=== PATIENT | male | born 1965 | race Caucasian/White ===

== ENCOUNTER 2020-12-21 14:26 | Outpatient (CLI) | payer BC, SELFPAY ==
--- NOTE | 2020-12-21 14:15 | DI.RAD_ITS ---
Exam(s) XR KNEE RT 1V EXAM: XR KNEE RT 1V CLINICAL HISTORY: right knee pain. TECHNIQUE: 2D digital imaging was performed. COMPARISON: No exams were available for comparison FINDINGS: Single lateral view of the right knee performed weight-bearing reveals advanced osteoarthritic degene rative changes. No obvious joint effusion. No osseous lesions. Bone density is normal. IMPRESSION: DATA REPOSITORY: RADIATION DOSE DELIVERED:
--- NOTE | 2020-12-21 14:15 | DI.RAD_ITS ---
Exam(s) XR STANDING ALIGNMENT EXAM: XR STANDING ALIGNMENT CLINICAL HISTORY: right knee pain. TECHNIQUE: 2D digital imaging was performed. COMPARISON: No exams were available for comparison FINDINGS: There are moderate-advanced degenerative changes medial lateral compartments of the right knee withou t significant similar changes in the opposite-left. Both hips appear relatively unremarkable minimal findings in the ankles. No osseous lesions. IMPRESSION: Significant degenerative changes in the right knee joint. DATA REPOSITORY: RADIATION DOSE DELIVERED:
--- NOTE | 2020-12-21 14:32 | DI.RAD_ITS ---
Exam(s) XR SHOULDER RT COMPLETE 2+V EXAM: XR SHOULDER RT COMPLETE 2+V CLINICAL HISTORY: right shoulder pain. TECHNIQUE: 2D digital imaging was performed. COMPARISON: No exams were available for comparison FINDINGS: No evidence of fracture nor dislocation nor soft tissue calcifications in the subacromial space. Mil d degenerative changes are noted in the glenohumeral joint. In addition, there is 6 millimeter ossif ication off the inferior osseous glenoid. This either loose body or possibly a related to prior bony [place] injury. Lateral to this is a fainter similar size calcification noted. Both these calcific ations are lined along the inferior glenohumeral ligament region. IMPRESSION: Inferior recess loose intra-articular bodies as described above Mild degenerative changes in the glenohumeral joint. Mild degenerative changes in the AC joint. DATA REPOSITORY: RADIATION DOSE DELIVERED:
== END 2020-12-21 14:27 | disposition home or self-care (01) ==
LOC: DIORS 14:27
PROVIDERS: PCP Family Medicine; Visit Provider Physician Assistant
DX: M19.011 Primary osteoarthritis, right shoulder (principal); M24.011 Loose body in right shoulder; M17.11 Unilateral primary osteoarthritis, right knee
CPT/HCPCS: 73030; 73560; 77073

== ENCOUNTER 2021-01-22 03:16 | Outpatient (CLI) | payer BC, SELFPAY ==
--- NOTE | 2021-01-22 08:15 | DI.MRI_ITS ---
Exam(s) MR UPPER JOINT RT WO CLINICAL HISTORY: PAIN, rt rotator cuff tear, M75.101,. TECHNIQUE: Multiplanar multisequence MRI was performed. COMPARISON: None FINDINGS: MR examination of the shoulder was performed according to the usual protocol. There is a moderate shoulder joint effusion. There is trace fluid in the subacromial bursa. Bones and labrum: There are severe degenerative changes of the glenohumeral joint with mild superior subluxation of humeral head, marked articular cartilage thinning, multiple cysts subchondral cysts of the humeral head and glenoid, and marked effacement of the glenoid labrum with presumed labral teari ng from anterior to posteriorly superiorly. There is marked hypertrophic change at the acromioclavicular joint with a joint effusion and moderate signal abnormalities of the acromion and clavicle. Rotator cuff: Supraspinatus shows abnormal signal from the myotendinous junction distally. There is moderate impingement on myotendinous junction from AC joint hypertrophic changes. There is minor te aring, 2-3 millimeters in size, at the inferior surface of the supraspinatus at the footprint. No fu ll-thickness tear or retraction seen. There is mildly abnormal signal in subscapularis tendon superiorly. No definite tear seen. Infraspi natus and teres minor muscles and tendons show normal signal and no evidence of tearing. Rotator interval structures are unremarkable with no evidence of a tear. Biceps tendon and anchor: Biceps tendon and anchor show normal signal and no evidence of a tear. Aida ps tendon is normally positioned in the bicipital groove. There is small effusion in the biceps tend on sheath. IMPRESSION: Severe degenerative changes of the glenohumeral joint and AC joint. Effaced presumably torn glenoid labrum. Mild supraspinatus tendinosis and minor partial thickness tearing at the humeral footprint of the sup raspinatus. DATA REPOSITORY:
== END 2021-01-22 03:36 ==
PROVIDERS: PCP Family Medicine; Visit Provider Student in an Organized Health Care Education/Training Program
DX: M75.101 Unspecified rotator cuff tear or rupture of right shoulder, not specified as traumatic (principal); R52 Pain, unspecified; M19.011 Primary osteoarthritis, right shoulder
CPT/HCPCS: 73221

== ENCOUNTER 2021-02-15 01:46 | Outpatient (CLI) | payer BC, SELFPAY ==
[2021-02-15 09:05] LABS: HCT 42.4 % (40.0-50.0); HGB 14.4 g/dL (13.5-17.5); MCH 30.5 pg (27.0-33.0); MCV 89.8 fL (80-95); MPV 9.2 fL (8.0-11.0); Platelet Count 307 10^3/uL (130-400); RBC 4.72 10^6/uL (4.36-5.78); RDW 11.9 % (11.8-14.1)
[2021-02-15 10:50] LABS: Anion Gap 9.6 mmol/L (3-11); BUN 30 mg/dL (7-18); CO2 27.4 mmol/L (21.0-32.0); CREATININE 1.3 mg/dL (0.70-1.30); Calcium 9.4 mg/dL (8.5-10.1); Chloride 106 mmol/L (98-107); Glucose 115 mg/dL (74-106); Potassium 4.9 mmol/L (3.5-5.1); Sodium 143 mmol/L (136-145)
== END 2021-02-15 01:47 | disposition home or self-care (01) ==
LOC: LBO 01:46
PROVIDERS: PCP Family Medicine; Visit Provider Student in an Organized Health Care Education/Training Program
DX: M25.561 Pain in right knee (principal); M17.11 Unilateral primary osteoarthritis, right knee; Z01.818 Encounter for other preprocedural examination; Z01.812 Encounter for preprocedural laboratory examination
CPT/HCPCS: 36415; 80048; 85027

== ENCOUNTER 2021-02-15 02:32 | Outpatient (CLI) | payer BC, SELFPAY ==
[2021-02-15 11:06] LABS: Source Nasal/Nares
[2021-02-15 14:17] LABS: COVID-19 PCR Negative (Negative)
== END 2021-02-15 02:33 | disposition home or self-care (01) ==
LOC: LBO 02:32
PROVIDERS: PCP Family Medicine; Visit Provider Student in an Organized Health Care Education/Training Program
DX: Z20.822 Contact with and (suspected) exposure to COVID-19 (principal); Z01.818 Encounter for other preprocedural examination
CPT/HCPCS: 87635

== ENCOUNTER 2021-02-16 08:58 | Day surgery (SDC) | payer BC, SELFPAY ==
[2021-02-16] VITALS (7 sets, daily range): BP systolic 109–152; BP diastolic 62–93; PULSE 60–77; RESP 16–30; TEMP 36.2–36.6; O2SAT 94–99; BMI 28.2
--- NOTE | 2021-02-16 07:33 | DSE_ITS ---
DS: Diagnosis Discharge Diagnosis (1) Degenerative joint disease of right knee: Status: Acute (2) Arthritis of right glenohumeral joint: Status: Acute Discharge Plan Disposition Patient Disposition: HOME Condition: Good Discharge Details Reason For Visit: Right knee DJD; right glenohumeral arthritis Attending Provider: Anish Davila Primary Care Provider: Jamar Frias Home Meds and New Rx's Prescriptions: New acetaminophen 500 mg tablet 500 mg PO Q6H PRN (Reason: pain) Qty: 60 RF: 2 aspirin 81 mg tablet,delayed release (DR/EC) 81 mg PO BID 30 Days Qty: 60 RF: 0 celecoxib [Celebrex] 200 mg capsule 200 mg PO BID Qty: 30 RF: 0 docusate sodium [Colace] 100 mg capsule 100 mg PO BID Qty: 30 RF: 0 gabapentin 300 mg capsule 300 mg PO QHS Qty: 14 RF: 0 oxycodone 5 mg tablet 5 mg PO Q4H PRN (Reason: severe post-operative pain) Qty: 18 RF: 0 Continued THC gummies PO RF: 0 lisinopril-hydrochlorothiazide 20-12.5 mg Tablet 1 tab PO DAILY RF: 0 pantoprazole 20 mg Tablet,Delayed Release (Dr/Ec) 20 mg PO DAILY RF: 0 ropinirole 4 mg Tablet 4 mg PO DAILY RF: 0 rosuvastatin 40 mg Tablet 40 mg PO DAILY RF: 0 Centrum Silver Men 300-600-300 mcg Tablet 1 tab PO DAILY RF: 0 Discontinued acetaminophen 500 mg capsule 1,000 mg PO Q6H PRNRF: 0 ibuprofen [Motrin IB] 200 mg tablet 800 mg PO Q6H PRNRF: 0 Discharge Instructions Additional Instructions: Total Knee Discharge Instructions Activity: The most important activity is to walk. You should try to take short walks a few times a day. It is important that when resting you work on keeping the knee straight. Avoid putting a pillow behind the knee as this will encourage flexion. Work on range of motion exercises as provided by Physical Therapy. If you have the [employer] bike coming, this will be your primary tool for exercise after the knee replacement. You should use it and follow the directions for the knee. Utilize the other exercises sparingly based on your symptoms. - Start outpatient physical therapy within 2 weeks. - You should wear the NADIRA hose on both legs for 2 weeks. You may remove these at night. You may also use any compression sock in place of the NADIRA hose. - Utilize [employer] to review exercises, see videos on exercises and obtain basic information pertaining to your surgery and your recovery. - Regarding your right shoulder injection - you can have increased discomfort or pressure in the shoulder for a few days. Hopefully you start to have relief from the injection but it can take up to two weeks to have full effect. Dressing: Remove the Louie wrap by 2 days after your surgery and put on the NADIRA stocking given to you from the hospital. Keep the surgical dressing (underneath the LOUIE wrap) in place for at least one week. After the first week it may be removed and replaced with light gauze and tape or nothing. The wound and dressing may get wet after 3 days but avoid soaking the dressing or otherwise it will need to be changed. Many people prefer covering the dressing with cling wrap (saran wrap) to minimize it from getting soaked. If it gets wet, just pat dry. If it starts to peel off then it will need to be changed. Medications: - You should take Tylenol and anti-inflammatory Celebrex as your primary pain control medications. If the Celebrex is too expensive or not covered, please call the office for another alternative (Advil/Ibuprofen or Naproxen/Aleve) - You have been prescribed a stronger pain medication Oxycodone for breakthrough pain, take as needed as prescribed. - You have also been prescribed a stomach acid reduction agent Pantoprozole to help reduce stomach acid and reflux. - You have been prescribed Gabapentin to take at night for restlessness and nerve pain. - You will be taking Aspirin 81mg twice a day for DVT prevention unless instructed otherwise. - If you have constipation you should take Colace or Miralax (both [id number]). It takes most people 3-4 days to have a bowel movement. Follow-up: 2 weeks If you have any acute concerns or questions, please do not hesitate to contact the office at [phone]. You may contact Dr. Davila with any questions after hours through the hospital at [phone] or on his cell phone at [phone]. Equipment/Supplies: Walker Activity:: Elevate Remove Dressings/Wound Care:: Do Not Remove Shower/Bathe:: 72 hours Diet:: As Tolerated DS: Data Vitals/I&O Vitals and I&O: Intake & Output 02/15/21 02/15/21 02/16/21 11:59 23:59 11:59 Weight 99.79 kg PFSH Medical History Acid reflux Arthritis of right glenohumeral joint Degenerative joint disease of right knee HTN (hypertension) Hyperlipemia Right rotator cuff tear RLS (restless legs syndrome) Surgical History History of arthroscopy of left knee History of arthroscopy of right knee History of hand surgery Status post labral repair of shoulder Right ~10-15 years ago [facility] Social History Smoking/Tobacco Use Status: Never Second Hand Exposure: No Smoking risk assessment performed?: Yes Alcohol Intake: current Alcohol Intake frequency: holidays/special occasions only Drug use: Occasionally Substance use type: marijuana Do you feel safe at home: Yes Do you feel safe in your relationship?: Yes
--- NOTE | 2021-02-16 08:28 | ANES.PREOP_ITS ---
General Info Date of Service Date Performed: 02/16/21 Height: 6 ft 2 in Weight: 99.79 kg Body Mass Index (BMI): 28.2 Surgical Procedure: Operation Date: 02/16/21 11:10 Proposed Procedures Side Surgeon p Knee Total Arthroplasty (R) Right Anish Davila MD s RIGHT SHOULDER INJECTION WITH C ARM Right Anish Davila MD Meds Allergies and Home Medications Allergies Allergy/AdvReac Type Severity Reaction Status Date / Time No Known Allergies Allergy Verified 02/16/21 09:20 Home Medication Medication Instructions Recorded THC gummies PO 12/21/20 Centrum Silver Men 1 tab PO DAILY 02/15/21 lisinopril-hydrochlorothiazide 1 tab PO DAILY 02/15/21 pantoprazole 20 mg PO DAILY 02/15/21 ropinirole 4 mg PO DAILY 02/15/21 rosuvastatin 40 mg PO DAILY 02/15/21 acetaminophen 500 mg PO Q6H PRN #60 tab 02/16/21 aspirin 81 mg PO BID 30 Days #60 tab 02/16/21 celecoxib [Celebrex] 200 mg PO BID #30 cap 02/16/21 docusate sodium [Colace] 100 mg PO BID #30 cap 02/16/21 gabapentin 300 mg PO QHS #14 cap 02/16/21 oxycodone 5 mg PO Q4H PRN #18 tab 02/16/21 Current Visit Medications: Current Medications Generic Name Dose Route Start Last Admin Trade Name Freq PRN Reason Stop Dose Admin Acetaminophen 1,000 mg 02/16/21 06:00 Acetaminophen 500 Mg Tab PO 02/16/21 18:00 PREOP MARYELLEN Acetaminophen 1,000 mg 02/16/21 09:00 Acetaminophen 500 Mg Tab PO TID MARYELLEN Aspirin 81 mg 02/16/21 09:00 Aspirin E.C. 81 Mg Tabec PO BID MARYELLEN Celecoxib 400 mg 02/16/21 06:00 Celecoxib 200 Mg Cap PO 02/16/21 18:00 PREOP MARYELLEN Celecoxib 200 mg 02/16/21 09:00 Celecoxib 200 Mg Cap PO BID MARYELLEN Docusate Sodium 100 mg 02/16/21 07:31 Docusate Sodium 100 Mg Cap PO BID PRN PRN Constipation Gabapentin 300 mg 02/16/21 06:00 Gabapentin 300 Mg Cap PO 02/16/21 18:00 PREOP MARYELLEN Gabapentin 300 mg 02/16/21 22:00 Gabapentin 300 Mg Cap PO HS MARYELLEN Hydromorphone HCl 0.5 mg 02/16/21 07:31 Hydromorphone 2 Mg/Ml Vial IVP Q2H PRN PRN Hydromorphone HCl 0 mg 02/16/21 08:26 Hydromorphone 2 Mg/Ml Vial IVP DIRECTED PRN Ringer's Solution 1,000 mls @ 80 mls/hr 02/16/21 06:00 IV 03/17/21 23:59 INFUSION MARYELLEN Cefazolin Sodium 2,000 mg/ 100 mls @ 200 mls/hr 02/16/21 06:00 Sodium Chloride IVPB 02/16/21 16:00 PREOP MARYELLEN Tranexamic Acid 1,000 mg/ 60 mls @ 360 mls/hr 02/16/21 06:00 Sodium Chloride IVPB 02/16/21 18:00 PREOP MARYELLEN Tranexamic Acid 1,000 mg/ 60 mls @ 360 mls/hr 02/16/21 06:00 Sodium Chloride IVPB 02/16/21 18:00 DIRECTED MARYELLEN Cefazolin Sodium/Dextrose 1 gm in 50 mls @ 100 mls/hr 02/16/21 10:00 Ancef Duplex IVPB 02/17/21 02:29 Q8H MARYELLEN IV Miscellaneous Supplies 1 each 02/16/21 06:00 Iv Access IV 03/17/21 23:59 DIRECTED MARYELLEN Naloxone HCl 0 mg 02/16/21 08:26 Naloxone 0.4 Mg/Ml Vial IVP PRN PRN Oxycodone HCl 0 mg 02/16/21 07:31 Oxycodone 5 Mg Tab PO Q3H PRN PRN Pain Pantoprazole Sodium 40 mg 02/17/21 08:00 Pantoprazole 40 Mg Tabcr PO DAILY@0730 MARYELLEN Polyethylene Glycol 17 gm 02/16/21 07:31 Polyethylene Glycol 3350 17 Gm Packet PO BID PRN PRN Constipation Sodium Chloride 0 ml 02/16/21 06:00 Normal Saline Flush 10 Ml Syr IV 03/17/21 23:59 PRN PRN Sodium Chloride 0 ml 02/16/21 06:00 Normal Saline 10 Ml Vial IJ 03/17/21 23:59 DIRECTED PRN Sterile Water 0 ml 02/16/21 06:00 Water,Injection,Sterile 10 Ml Vial IJ 03/17/21 23:59 DIRECTED PRN PFSH Active Problems Active Problems: Problem Status Onset Code Right rotator cuff tear M75.101 Arthritis of right glenohumeral joint M19.011 Degenerative joint disease of right knee M17.11 Medical History Medical History Acid reflux Arthritis of right glenohumeral joint Degenerative joint disease of right knee HTN (hypertension) Hyperlipemia Right rotator cuff tear RLS (restless legs syndrome) Surgical History Surgical History History of arthroscopy of left knee History of arthroscopy of right knee History of hand surgery Status post labral repair of shoulder Right ~10-15 years ago [facility] Tobacco Smoking/Tobacco Use Status: Never Second hand exposure: No Alcohol Alcohol Intake: current Alcohol intake frequency: holidays/special occasions only Substance Use Substance use: Occasionally Substance use type: marijuana Vital Signs and Lab Results Vital Signs Most Recent Vital Signs in EMR: Temp Pulse Resp BP Pulse Ox 36.6 C 77 16 152/93 H 98 02/16/21 09:03 02/16/21 09:03 02/16/21 09:03 02/16/21 09:03 02/16/21 09:03 Lab Results Blood Type / Crossmatch: No Data to Display Complete Blood Count: White Blood Count 4.60 10^3/uL (4.4-10.8) 02/15/21 08:55 02/15/21 Red Blood Count 4.72 10^6/uL (4.36-5.78) 02/15/21 08:55 02/15/21 Hemoglobin 14.4 g/dL (13.5-17.5) 02/15/21 08:55 02/15/21 Hematocrit 42.4 % (40.0-50.0) 02/15/21 08:55 02/15/21 Platelet Count 307 10^3/uL (130-400) 02/15/21 08:55 02/15/21 Complete Metabolic Panel: Sodium Level 143 mmol/L (136-145) 02/15/21 08:55 02/15/21 Potassium Level 4.9 mmol/L (3.5-5.1) 02/15/21 08:55 02/15/21 Chloride Level 106 mmol/L (98-107) 02/15/21 08:55 02/15/21 Carbon Dioxide Level 27.4 mmol/L (21.0-32.0) 02/15/21 08:55 02/15/21 Blood Urea Nitrogen 30 mg/dL (7-18) H 02/15/21 08:55 02/15/21 Creatinine 1.3 mg/dL (0.70-1.30) 02/15/21 08:55 02/15/21 Estimated GFR/1.73 m2 56.90 (mL/min/1.73m2) 02/15/21 08:55 02/15/21 Calcium Level 9.4 mg/dL (8.5-10.1) 02/15/21 08:55 02/15/21 Glucose Level 115 mg/dL (74-106) H 02/15/21 08:55 02/15/21 Liver Function Panel: No Data to Display Coagulation Panel: No Data to Display Cardiac Panel: No Data to Display Arterial Blood Gas: No Data to Display Venous Blood Gas: No Data to Display Pancreas Panel: No Data to Display Thyroid Panel: No Data to Display Infectious Disease: Coronavirus (COVID-19)(PCR) Negative (Negative) 02/15/21 08:17 02/15/21 Coronavirus 2019 Source Nasal/Nares 02/15/21 08:17 02/15/21 Blood Cultures: No Data to Display Toxicology Panel: No Data to Display Anesthesia Assessment and Plan Anesthesia History Personal History: No History of Anesthesia Complications Family History: No Family History of Anesthesia Complications Exercise Tolerance Exercise Tolerance: Metabolic Equivalents>4 Cardiac & Pulmonary Exam Cardiac Exam: Normal S1/S2 Heart Sounds Pulmonary Exam: Clear Bilateral Breath Sounds Airway Exam Known Difficult Airway: No Mallampati Class: 2 Mouth Opening: Normal (> 3cm) Thyromental Distance: Greater than 3 cm Neck Range of Motion: Limited ROM Neck Circumference: Normal Teeth Condition: Normal Dentition ASA Classification ASA Score: ASA 2 Emergency Case?: No NPO Status NPO Status: NPO Clears >2 hours, Solids >8 hours Anesthesia Plan Resuscitation Status: Full Code Anesthesia Technique: Spinal Anesthesia Airway Planned: Natural Airway Pain Management: Surgeon and patient request nerve block Monitors Used: Standard Monitors Preoperative Comments:: 55 yo male for TKA. PMHx: HTN (lisinopril-HCTZ). Denies major cardiac, pulmonary, renal, liver, issues. plan: spinal with ACB
[2021-02-16] MEDS: Celecoxib 200 MG CAP 400 MG PO (09:18)
[2021-02-16] MEDS: Gabapentin 300 MG CAP PO (09:19)
[2021-02-16] MEDS: Acetaminophen 500 MG TAB 1000 MG PO ×2 (09:19→13:57)
[2021-02-16] MEDS: Lactated Ringers 1,000 ML 80 ML IV (09:39)
--- NOTE | 2021-02-16 10:30 | DI.RAD_ITS ---
Exam(s) XR SHOULDER RT 1V EXAM: XR SHOULDER RT 1V CLINICAL HISTORY: RIGHT SHOULDER INJECTION TECHNIQUE: 2D and realtime digital imaging was performed. CONTRAST MATERIAL: Refer to procedure report. COMPARISON: No exams were available for comparison FINDINGS: Fluoroscopy was provided for Dr. Davila during the performance of a right shoulder injection. Ple ase refer to the procedure report for complete details. Ka,r=0.76 mGy IMPRESSION: RADIATION DOSE DELIVERED:
--- NOTE | 2021-02-16 10:44 | W.ANESNERVE ---
Nerve Block Single Injection Procedure Date and Time Date Performed: 02/16/21 Procedure Start: 10:45 Location Where Procedure Performed Procedure Location: Day Surgery Unit Reason Performed: Postoperative Analgesia Requesting Provider: Anish Davila Timeout Performed Timeout Performed: Yes Monitoring Used ECG, Blood Pressure and SpO2 Sterility Sterility: Hand Hygiene, Surgical Cap, Surgical Mask and Sterile Gloves Sedation Given During Procedure Sedation Given (Indicate Dose Given): No Sedation given Patient Mental Status Patient Mental Status: Awake Nerve Block 1st Nerve Block: Laterality: Right Block Type: Adductor Canal Needle / Catheter Used: 100mm SonoPlex II Local Anesthetic Bolus (Indicate Dose Given): Lidocaine used for local infiltration of skin, Injected in 3-5ml increments after negative blood aspiration and Bupivacaine 0.375% Dose:: 10 mL Additives (Indicate Dose Given): None Ultrasound: Sterile probe cover and gel used Ultrasound Image Saved?: Yes Nerve Stimulator: Not Used Paresthesia: None Procedure Tolerated: No Complications Procedure Outcome: Successful Performed By: Bartolome Carlos
[2021-02-16] MEDS: Bupivacaine 0.25% Pres-Free 30 ML VIAL ×2 (11:10→11:37)
[2021-02-16] MEDS: methylPREDNISolone ACETATE 80 MG/ML VIAL (11:10)
[2021-02-16] MEDS: Normal Saline 20 ML VIAL (11:37)
[2021-02-16] MEDS: Ketorolac 30 MG/ML VIAL (11:37)
--- NOTE | 2021-02-16 13:28 | W.PM.DSUDISC ---
Discharge Plan Disposition Patient Disposition: HOME Condition: Good Discharge Details Reason For Visit: Right knee DJD; right glenohumeral arthritis Attending Provider: Anish Davila Primary Care Provider: Jamar Frias Home Meds and New Rx's Prescriptions: New acetaminophen 500 mg tablet 500 mg PO Q6H PRN (Reason: pain) Qty: 60 RF: 2 aspirin 81 mg tablet,delayed release (DR/EC) 81 mg PO BID 30 Days Qty: 60 RF: 0 celecoxib [Celebrex] 200 mg capsule 200 mg PO BID Qty: 30 RF: 0 docusate sodium [Colace] 100 mg capsule 100 mg PO BID Qty: 30 RF: 0 gabapentin 300 mg capsule 300 mg PO QHS Qty: 14 RF: 0 oxycodone 5 mg tablet 5 mg PO Q4H PRN (Reason: severe post-operative pain) Qty: 18 RF: 0 Continued THC gummies PO RF: 0 lisinopril-hydrochlorothiazide 20-12.5 mg Tablet 1 tab PO DAILY RF: 0 pantoprazole 20 mg Tablet,Delayed Release (Dr/Ec) 20 mg PO DAILY RF: 0 ropinirole 4 mg Tablet 4 mg PO DAILY RF: 0 rosuvastatin 40 mg Tablet 40 mg PO DAILY RF: 0 Centrum Silver Men 300-600-300 mcg Tablet 1 tab PO DAILY RF: 0 Discontinued acetaminophen 500 mg capsule 1,000 mg PO Q6H PRNRF: 0 ibuprofen [Motrin IB] 200 mg tablet 800 mg PO Q6H PRNRF: 0 Discharge Instructions Additional Instructions: Total Knee Discharge Instructions Activity: The most important activity is to walk. You should try to take short walks a few times a day. It is important that when resting you work on keeping the knee straight. Avoid putting a pillow behind the knee as this will encourage flexion. Work on range of motion exercises as provided by Physical Therapy. If you have the [employer] bike coming, this will be your primary tool for exercise after the knee replacement. You should use it and follow the directions for the knee. Utilize the other exercises sparingly based on your symptoms. - Start outpatient physical therapy within 2 weeks. - You should wear the NADIRA hose on both legs for 2 weeks. You may remove these at night. You may also use any compression sock in place of the NADIRA hose. - Utilize [employer] to review exercises, see videos on exercises and obtain basic information pertaining to your surgery and your recovery. - Regarding your right shoulder injection - you can have increased discomfort or pressure in the shoulder for a few days. Hopefully you start to have relief from the injection but it can take up to two weeks to have full effect. Dressing: Remove the Louie wrap by 2 days after your surgery and put on the NADIRA stocking given to you from the hospital. Keep the surgical dressing (underneath the LOUIE wrap) in place for at least one week. After the first week it may be removed and replaced with light gauze and tape or nothing. The wound and dressing may get wet after 3 days but avoid soaking the dressing or otherwise it will need to be changed. Many people prefer covering the dressing with cling wrap (saran wrap) to minimize it from getting soaked. If it gets wet, just pat dry. If it starts to peel off then it will need to be changed. Medications: - You should take Tylenol and anti-inflammatory Celebrex as your primary pain control medications. If the Celebrex is too expensive or not covered, please call the office for another alternative (Advil/Ibuprofen or Naproxen/Aleve) - You have been prescribed a stronger pain medication Oxycodone for breakthrough pain, take as needed as prescribed. - You have also been prescribed a stomach acid reduction agent Pantoprozole to help reduce stomach acid and reflux. - You have been prescribed Gabapentin to take at night for restlessness and nerve pain. - You will be taking Aspirin 81mg twice a day for DVT prevention unless instructed otherwise. - If you have constipation you should take Colace or Miralax (both [id number]). It takes most people 3-4 days to have a bowel movement. Follow-up: 2 weeks If you have any acute concerns or questions, please do not hesitate to contact the office at [phone]. You may contact Dr. Davila with any questions after hours through the hospital at [phone] or on his cell phone at [phone]. Equipment/Supplies: Walker Activity:: Elevate Remove Dressings/Wound Care:: Do Not Remove Shower/Bathe:: 72 hours Diet:: As Tolerated DS: Diagnosis Discharge Diagnosis (1) Degenerative joint disease of right knee: Status: Acute (2) Arthritis of right glenohumeral joint: Status: Acute
[2021-02-16] MEDS: oxyCODONE 5 MG TAB PO (13:57)
--- NOTE | 2021-02-16 14:04 | W.ANESPOSTOP ---
Postoperative Evaluation Date, Time and Location Date Performed: 02/16/21 Time Performed: 13:30 Patient Location: PACU Vital Signs Most Recent Imported Vital Signs: Most Recent Vital Signs Temp Pulse Resp BP Pulse Ox 36.5 C 62 18 117/73 96 02/16/21 13:25 02/16/21 13:25 02/16/21 13:25 02/16/21 13:25 02/16/21 13:25 Pain Score Most Recent Pain Score: Most Recent Pain Score Pain Level 2 02/16/21 13:25 Assessment Mental Status: Awake (Alert & Oriented to Patient Baseline) Airway and Respiratory Function: Patent airway with normal (patient baseline) respiratory exam Cardiovascular Function: Hemodynamically Stable Hydration Status: Adequately Hydrated Nausea & Vomiting: No Nausea or Vomiting Pain: Pain is tolerable per patient Peripheral Nerve Block: Regional nerve block not resolved at time of post operative discharge
--- NOTE | 2021-02-16 14:57 | PT.INIE ---
Date of service: 02/16/21 Time of Service: 14:57 PT Notes Visit Reasons: Right knee DJD; right glenohumeral arthritis Physical Therapy Day Surgery Initial Evaluation Date: 02/16/2021 Referring Doctor: DARRION Truong PT Orders: PT CONSULT: S/P Ortho Surgery Precautions: WBAT on the R LE with AD. Patient Profile/Admitting Diagnosis: Patient is a 55-year-old male with R degenerative joint disease of the R knee and R glenohumeral arthritis, S/P R total knee arthroplasty and R shoulder injection on postoperative day 0. PMHX: Medical History Acid reflux Arthritis of right glenohumeral joint Degenerative joint disease of right knee HTN (hypertension) Hyperlipemia Right rotator cuff tear RLS (restless legs syndrome) Surgical History History of arthroscopy of left knee History of arthroscopy of right knee History of hand surgery Status post labral repair of shoulder Right ~10-15 years ago [facility] Social History/Home Situation: Lives with in a private home with one little step to enter. Ground leading to house entrance gradually slopes down with a total distance of 10 yeards. Independent with all aspects of ADLs prior to surgery. Equipment Owned/DME: [facility] Subjective: Reports being a little foggy with the Oxycodone he took. Reports pain in the inner side of his R knee initially and then pain migrated to the outer side towards end of ambulation. Pain report did not however limit ambulation distance. Cueing to weight bear on walker handle through B UE given (as patient appears to be just lifting walker early on) to minimize R knee pain. States that he has fallen about 5 times in the past year as his R knee tends to give way. Today however, he feels that his knee is significantly more stable. Denies headache, chest pain nor dizziness throughout session. Objective: General Observation: Supine in bed. NOE wraps to R LE. Cryocuff to R knee. Mental Status: Alert and oriented x 4 Pain: 5/10 pain in the R knee ROM: Right Lower Extremity: Hip flexion WFL. Hip abduction WFL. Knee flexion 10 degrees to 100 degrees. Knee extension -10 degrees. Ankle dorsiflexion WFL. Ankle plantarflexion WFL. Left Lower Extremity: Hip flexion WFL. Hip abduction WFL. Knee flexion WFL. Ankle dorsiflexion WFL. Ankle plantarflexion WFL. Strength: Right Lower Extremity: Hip flexors 4/5. Hip abductors 5/5. Knee flexors 3-/5. Knee extensors 3-/5. Ankle dorsiflexors 5/5. Ankle plantarflexors 5/5. Left Lower Extremity:Hip flexors 5/5. Hip abductors 5/5. Knee flexors 5/5. Knee extensors 5/5. Ankle dorsiflexors 5/5. Ankle plantarflexors 5/5. Sensation: Denies numbness and tingling in B LE Bed Mobility/Transfers: Supine to sit independent Sit to stand independent Stand to sit independent Bed to chair independent Gait: Tolerated level surface ambulation of up to 150 feet using front wheeled walker with step through gait pattern requiring supervision. Did report 5/10 pain on the medial and lateral aspect of the right knee but did not limit ambulation distance. Good activation of R quad observed. No pain reported on R shoulder. Stairs: Up and down three 4-inch steps while holding onto bilateral rails with step-to gait pattern requiring only supervision. Balance: Static Sitting: Normal Dynamic Sitting: Normal Static Standing: Fair Dynamic Standing: Fair Special Tests: Mobility Limitations Standardized Measure [facility] AM-PAC 6 clicks Basic Mobility Inpatient Short Form: Raw Score: 24 CMS Score: 0% deficit Informed Consent/Education: Patient instructed in purpose of PT consult. Packet containing TKA exercise protocol has been given to patient. Education and training on initial set of exercises that can be done at home have been completed with patient. Assessment: Patient requires use of a front wheel walker to maximize independence and reduce fall risk for all mobility ADL performance. Patient presents with clinical signs and symptoms consistent with current/admitting diagnoses that have resulted to mobility limitations, gait instability, generalized weakness, and impairment of motor control as demonstrated by the following impairment level findings: 1. Decreased strength to right knee major muscle groups 2. Impaired standing balance 3. Limitation of joint range of motion in right knee Impairments are contributing to the following functional limitations: 1. Inability to safely ambulate without assistive device 2. Increase completion time for mobility ADL performance 3. Increased fall risk Patient is assessed as a [id number] moderate complexity based on the following: History: 55 [id number] with impairment level findings, functional limitations, and past medical history as indicated above Examination: Demonstrable impairment in strength, balance, and mobility level with underlying impairments and functional limitations as documented above Presentation: Stable Decision Makin moderate complexity Goals: N/A. PT evaluation and 1-2 treatment sessions only for functional mobility training using recommended AD and for HEP instruction. Plan of Care/Treatment Plan: N/A. PT evaluation and 1-2 treatment session only for functional mobility training using recommended AD and for HEP instruction. DISCHARGE RECOMMENDATIONS: Home when medically cleared by orthopedic surgeon. Outpatient PT services in order to facilitate return to independent community ambulation without an assistive device. TREATMENT CODE/TIME: 09268 x 20 minutes, 40207 x 12 minutes beginning at 14:57 PM. Thank you for the opportunity to participate in the care of this patient. Dilcia Ricci PT, DPT, CLT [facility] [place], [place]
--- NOTE | 2021-02-17 05:45 | W.PM.OP ---
Date of service: 02/16/21 Time of Service: 12:46 Operative Note Operative Note DATE OF PROCEDURE: 02/16/21 PRE-OP DIAGNOSIS: Right Knee Osteoarthritis and Right Glenohumeral Arthritis POST-OP DIAGNOSIS: same PROCEDURE: Right Total Knee Replacement Right Fluoroscopic Guided Shoulder Injection SURGEON: Anish Davila DIRECTOR INTERNAL CONTROL: Emy Bueno ANESTHESIA TYPE: Spinal Refer to Anesthesia Record ESTIMATED BLOOD LOSS: 200 PATHOLOGY: none sent TOURNIQUET TIME: 0 COMPLICATIONS: None Patient was transported to: PACU Patient's condition: stable Implants: 1. Depuy Attune Cementless Cruciate Retaining Femoral Component, Size 8 2. Depuy Attune Cementless Rotating Platform Tibial Component, Size 8 3. Depuy Attune 8x6mm CR/RP Poly 4. Depuy Attune Patellar Component, Size 41 Indications: I have seen Michael in clinic for symptoms of knee arthritis, confirmed with radiographic findings. Michael has exhausted nonoperative methods and was having significant limitations in daily function and desired better function and less pain. I discussed the technical details of a knee replacement. I explained the risks of the procedure to include, but not limited to, bleeding, infection, pain, stiffness, fracture, damage to nerves and vessels, damage to muscles and tendons, loosening, need for repeat procedure, blood clot and cardiopulmonary demise. Despite these risks, Michael elected to proceed. Findings: There was significant signs of arthritis throughout all three compartments of the knee. Procedure Description: Michael was greeted in the preoperative holding area where the correct side was identified and marked. The consent was reviewed with the patient and signed. The history and physical was updated. All questions were answered. Preoperative medications were administered: Acetaminophen 1000mg, Celebrex 400mg, and Gabapentin 300mg. An adductor canal block was then administered by the anesthesia team in the PACU. Michael was taken back to the operating room. A spinal anesthestic was then administered. The patient was placed into the supine position on the operating room table. A nonsterile tourniquet was placed high onto the leg but only used for cementing. Posts were placed for positioning during the procedure. All bony prominences were well padded. Prophylactic antibiotics in the form of Cefazolin were administered. 1g of Tranxemic Acid was given intravenously within 30 minutes of incision. A timeout to confirm correct identity, side and site, procedure, allergies, anesthesia, and medical concerns was performed. The right shoulder injection was performed first. The anterior aspect the shoulder was marked and fluoroscopy confirmed appropriate starting point. This area was then prepped with alcohol. Using a spinal needle I then advanced the needle into the glenohumeral joint. Once again, fluoroscopy confirmed as appropriate position. I injected a small amount of Omnipaque to confirm intra-articular placement. Once this was confirmed with fluoroscopy, I injected 5 cc of 0.25% bupivacaine along with 80 mg of Depo-Medrol. A Band-Aid was applied. The right leg was then prepped with Chloraprep and draped in a standard fashion with impervious stockinette. A second prep with Chloraprep was performed prior to application of Iodine impregnated skin protection. With the knee in some flexion, a midline incision was made overlying the knee. Full thickness skin flaps were raised once the extensor mechanism was encountered. These were raised medially and laterally. Any bleeding was controlled with electrocautery. Once the extensor mechanism was fully exposed, a medial parapatellar arthrotomy was performed in a flexed position. All bleeding from the arthrotomy and the geniculate arteries was coagulated. A medial subperiosteal peel was performed with electrocautery to the midcoronal plane. The fat pad was removed while keeping the patellar tendon protected. The anterior distal femur synovium was removed for later visualization. The ACL and PCL were resected and the anterior horn of the lateral meniscus was transected. The knee was then flexed with the patella everted. Large osteophytes from the femur were removed. There were notable arthritic changes throughout all 3 compartments with a slightly hypoplastic lateral femur. Using a step drill, and based on preoperative templating, the femoral canal was entered. This was done with a step drill without any difficulty. The intramedullary distal femoral cut guide was inserted, set to a 5 degree valgus cut and 9 mm cut thickness. The distal femoral cut guide was then held in position and pinned. With the soft tissues protected, the distal cut was performed. This was passed over a few times to ensure a planar cut. I then turned attention to the tibia. The extramedullary guide was placed onto the leg. The distal aspect was slid medial to adjust for position of center of ankle and stay in line with shaft of the tibia. Approximately 3-5 degrees of posterior slope was kept in the proximal cutting guide. The center of the guide was aligned with the PCL. The stylus was used to assess cut thickness. The medial side, most involved side, was set for a 4mm cut. This was then held in position and pinned into place with 2 additional pins and a cross pin for stability. The medial and lateral collateral ligaments were protected and the cut was performed. With this completed, it was assessed and noted to be of appropriate dimensions. The guide was removed. A spacer block was inserted and the knee was brought into extension. The 6mm spacer block provided full extension, without hyperextension and with stability of both the medial and lateral collateral ligaments was assessed. The pins from the femur and the tibia were then removed. The distal femur was then sized. The anterior stylus was placed onto the lateral ridge of the anterior femur. This indicated a size 8 femur. The external rotation of the guide was adjusted to 5 degrees to match the epicondylar axis, perpendicular to Deb?s line. The 4-in-1 cutting guide was the placed. The posterior medial femur cut was evaluated and appeared of good thickness. The spacer block was inserted underneath the cutting guide and stability was confirmed in 90 degrees of flexion. An jefry wing was used to confirm appropriate position of the anterior cut to avoid notching. This cutting guide was ensured to be flush on the cut surface and then pinned into place with headed pins. While protecting the soft tissues, quad tendon, and collateral ligaments, the anterior and posterior cuts were performed with a saw. The central two pins were removed and the posterior and anterior chamfers were cut next. The notch-cutting guide was placed. This was pinned to lateralize the femoral component as much as possible while keeping it flush on the cut surface. This was then pinned into position. A reciprocating saw was used to make the notch cut. A rasp smoothed the cut surfaces. The medial and lateral menisci were removed. A trial femoral component was then inserted, impacted down to the cut surfaces, and the lug holes were drilled. A provisional trial tibial component was placed and the knee was brought through range of motion. There was noted to be excellent extension and flexion. There was no significant instability. The patella was tracking without thumbs. A size 6mm polyethylene component provided the best range of motion and stability with less than 2mm gapping with medial and lateral stress and full extension without significant hyperextension. The tibial cut surface was fully exposed. The tibia was then sized as a 8. The tibia had been previously marked during trialing to correspond to the center of the tibial component to help with rotation. The trial was aligned to this abbi, approximately rotated to the medial 1/3rd of the tibial tubercle. The trial was pinned into place. The tibia was prepared with a reamer and a keel punch and lug holes. The knee was then brought into extension and the patella was measured as 28mm. Using the patellar clamp and cut guide, this was resected to a flat surface with at least 13mm of thickness remaining. The size 41 patella fit the best. This was oriented and then clamped into position. The lugs were drilled. The trial components were removed. The final components were opened on the back table. The periosteal and capsular tissues, especially posteriorly, around the knee were then systematically injected with a periarticular cocktail consisting of 50cc 0.25% Marcaine, 30mg Ketorolac, 20cc of Exparal and 50cc of injectable saline. The knee was thoroughly irrigated with a pulse lavage and dried. Irrisept was also used to irrigate the tissues. On the back table, with the implants opened, the cement was mixed. One batch of high viscosity cement was prepared with vacuum assistance. After the cement was ready a small amount was placed on the cut surface of the patella and the patellar button was clamped into position and held. While the cement was hardening, the cementless knee components were placed. Starting with the tibial component, the tibia was subluxed anteriorly and the lug holes of the component were lined up. The tibia was then impacted with an impactor and mallet until the tibial component was in contact with the tibia. The final polyethylene component was inserted. Then, the femoral component was inserted. The lug holes were aligned and the component was impacted into position. The knee was irrigated with Irrisept chlorhexadine solution. This was allowed to sit in the knee for 3 minutes. After the cement had finally cured, approximately 15min, the clamp was removed from the patella and the knee was taken through range of motion. The patella was tracking with a no-thumbs technique. The capsule was then reapproximated with a No. 1 Vicryl at multiple locations. The capsule was finally closed with a No. 2 Stratafix, barbed suture. The second dosing of 1g TXA was started. Deep tissues were then reapproximated with 0 Vicryl and 2-0 Vicryl. The skin was closed with a running 3-0 Monocryl in a subcuticular fashion. This was reinforced with skin glue. A Mepilex silver dressing was applied along with a [id number] NOE wrap. A CryoCuff was applied. Michael was transferred to the hospital bed without difficulty an suffering no apparent complication. Michael has a good prognosis. Physical therapy will start today and without restrictions, weight-bearing as tolerated. Aspirin 81mg BID will be used for DVT prophylaxis.
== END 2021-02-16 15:40 | disposition home or self-care (01) ==
LOC: SUR 08:58
PROVIDERS: PCP Family Medicine; Visit Provider Student in an Organized Health Care Education/Training Program
PROC: (CPT 27447; principal; 2021-02-16 11:00)
PROC: (CPT 27447; 2021-02-16 11:00)
DX: M17.11 Unilateral primary osteoarthritis, right knee (principal); M19.011 Primary osteoarthritis, right shoulder
CPT/HCPCS: 27447; 20610; 97162; 97530; 73020; J1040; J1100; J1885; J2001; J2405; J2704

== ENCOUNTER 2021-02-23 08:19 | Outpatient (CLI) | payer BC, SELFPAY ==
--- NOTE | 2021-02-23 08:00 | DI.RAD_ITS ---
Exam(s) XR KNEE RT 1V XR STANDING ALIGNMENT EXAM: XR STANDING ALIGNMENT and XR knee RT 1 V CLINICAL HISTORY: 1ST POST OP R TKA. TECHNIQUE: 2D digital imaging was performed. Five views were obtained. COMPARISON: CR XR STANDING ALIGNMENT from 12/21/2020 FINDINGS: BONES: No acute fracture is present. No bony destructive lesion is seen. Since the prior examination the patient has undergone a right total knee replacement. The orthopedic hardware appears in good po sition. No lucencies are seen in or about the orthopedic hardware. There may be a small right knee joint effusion. The left knee is well maintained. Mild degenerative changes are seen in the hips bi laterally. The right lower extremity measures 102.5 cm. The left lower extremity measures 104 cm. SOFT TISSUE: Normal. IMPRESSION: Stable right TKR. DATA REPOSITORY: RADIATION DOSE DELIVERED:
== END 2021-02-23 08:20 | disposition home or self-care (01) ==
LOC: DIORS 08:19
PROVIDERS: PCP Family Medicine; Referring Provider Family Medicine; Visit Provider Physician Assistant
DX: Z96.651 Presence of right artificial knee joint (principal); Z47.1 Aftercare following joint replacement surgery
CPT/HCPCS: 73560; 77073

== ENCOUNTER 2021-05-27 02:22 | Outpatient (CLI) | payer BC, SELFPAY ==
--- NOTE | 2021-05-27 13:16 | OPPNE_ITS ---
Date of service: 05/27/21 Time of Service: 13:16 Procedure Note Date of procedure: 05/27/21 Procedure: Right Shoulder Injection Surgeon/Proceduralist/Physician: Anish Davila Procedure Diagnosis: Right Shoulder Arthritis Procedure Indications: Michael has had persistent pain of the RIGHT shoulder. Noninvasive measures have been tried and he had good success with a previous injection. Therefore, an injection under fluoroscopy was recommended. I had discussed the risks of the procedure and the patient elected to proceed. Procedure Description: Michael was greeted in the flouroscopy room. The correct side was identified and the consent was reviewed with the patient and signed. The patient was then placed in the supine position on the fluoroscopy table. The RIGHT shoulder was then prepped with Chloraprep. The anterior injection starting point was identiifed by bony landmarks and fluoroscopy. The skin and soft tissue in the tract of the injection was anesthetized with 1% Lidocaine. A spinal needle was then inserted deep into the shoulder joint at the level of the recess between the glenoid and superior humeral head. A small amount of Omnipaque solution was injected to confirm intraarticular placement. Once confirmed, the shoulder was injected with 4cc of 0.5% Bupivicaine and 80mg of Depo-Medrol. A bandaid was placed on the injection site. The patient tolerated the procedure well and noted improvement in pre- injection pain.
--- NOTE | 2021-05-27 13:16 | DI.RAD_ITS ---
Exam(s) RF JOINT INJECTION FLUORO GUID EXAM: RF JOINT INJECTION FLUORO GUID CLINICAL HISTORY: R SHOULDER INJ UNDER FLUORO,rt rotator cuff tear,arthritis rt ac joint, TECHNIQUE: Fluoroscopy provided. Radiologist not present. CONTRAST MATERIAL: None COMPARISON: No exams were available for comparison FINDINGS: Fluoroscopy was provided for Dr. Davila during right shoulder injection. Submitted image(s) reveal needle at the superomedial aspect of the humeral head. Contrast injected a nd extends towards the medial recess Please refer to the procedure report for complete details. Cumulative Dose: mary Ramon=0.179 mGy IMPRESSION: RADIATION DOSE DELIVERED:
[2021-05-27] MEDS: methylPREDNISolone ACETATE 80 MG/ML VIAL IM (13:44)
[2021-05-27] MEDS: Bupivacaine 0.5% Pres-Free 10 ML VIAL 5 ML IJ (13:45)
[2021-05-27] MEDS: Omnipaque 300 MG/ML 10 ML BTL IJ (13:47)
== END 2021-05-27 02:42 ==
PROVIDERS: PCP Family Medicine; Visit Provider Student in an Organized Health Care Education/Training Program
DX: M19.011 Primary osteoarthritis, right shoulder (principal); M25.511 Pain in right shoulder
CPT/HCPCS: 20610; 77002; J1040

== ENCOUNTER → 2021-10-28 01:18 | Outpatient (CLI) | payer OTHER, SELFPAY ==
--- NOTE | 2021-10-28 15:09 | W.PROCNOTE ---
Date of service: 10/28/21 Time of Service: 14:55 Procedure Note Date of procedure: 10/28/21 Procedure: Right Shoulder Injection Surgeon/Proceduralist/Physician: Anish Davila Procedure Diagnosis: Right Glenohumera Arthritis Procedure Indications: Michael has had persistent pain of the RIGHT shoulder. Noninvasive measures have been tried. To serve as both diagnostic and therapeutic, an injection under fluoroscopy was recommended. I had discussed the risks of the procedure and the patient elected to proceed. Procedure Description: Michael was greeted in the flouroscopy room. The correct side was identified and the consent was reviewed with the patient and signed. The patient was then placed in the supine position on the fluoroscopy table. The RIGHT shoulder was then prepped with Chloraprep. The anterior injection starting point was identiifed by bony landmarks and fluoroscopy. The skin and soft tissue in the tract of the injection was anesthetized with 1% Lidocaine. A spinal needle was then inserted deep into the shoulder joint at the level of the recess between the glenoid and superior humeral head. A small amount of Omnipaque solution was injected to confirm intraarticular placement. Once confirmed, the shoulder was injected with 4cc of 0.5% Bupivicaine and 80mg of Depo-Medrol. A bandaid was placed on the injection site. The patient tolerated the procedure well and noted improvement in pre-injection pain.
--- NOTE | 2021-10-28 15:11 | DI.RAD_ITS ---
Exam(s) RF JOINT INJECTION FLUORO GUID EXAM: RF JOINT INJECTION FLUORO GUID CLINICAL HISTORY: RIGHT SHOULDER PAIN,RT SHOULDER INJ UNDER FLUORO,M75.101,RT RTC TEAR TECHNIQUE: Fluoroscopy provided. Radiologist not present. CONTRAST MATERIAL: None COMPARISON: No exams were available for comparison FINDINGS: Fluoroscopy was provided for therapeutic right shoulder injection. Submitted image(s) reveal intra-articular injection contrast needle tip superomedial aspect of chai l head. Please refer to the procedure report for complete details. Cumulative Dose: mary Ramon=7.25 mGy IMPRESSION: RADIATION DOSE DELIVERED:
[2021-10-28] MEDS: methylPREDNISolone ACETATE 80 MG/ML VIAL IM (15:12)
[2021-10-28] MEDS: Omnipaque 300 MG/ML 10 ML BTL IJ (15:13)
[2021-10-28] MEDS: Bupivacaine 0.5% Pres-Free 30 ML VIAL IJ (15:13)
== END ==
PROVIDERS: PCP Family Medicine; Visit Provider Student in an Organized Health Care Education/Training Program
DX: M75.101 Unspecified rotator cuff tear or rupture of right shoulder, not specified as traumatic (principal); M25.511 Pain in right shoulder
CPT/HCPCS: 20610; 77002; J1040

== ENCOUNTER 2022-02-17 10:42 | Outpatient (CLI) | payer OTHER, SELFPAY ==
--- NOTE | 2022-02-17 09:28 | DI.RAD_ITS ---
Exam(s) XR KNEE RT 2V AP,LAT EXAM: XR KNEE RT 2V AP,LAT INDICATION: annual f/u R TKA. COMPARISON: CR XR KNEE RT 1V from 02/23/2021 TECHNIQUE: 2D digital imaging was performed. Two views. FINDINGS: There has been no change in the alignment of the total knee prosthesis or appearance of the surroundi ng bone. DATA REPOSITORY: RADIATION DOSE DELIVERED:
== END 2022-02-17 10:43 | disposition home or self-care (01) ==
LOC: DIORS 10:42
PROVIDERS: PCP Family Medicine; Referring Provider Family Medicine; Visit Provider Student in an Organized Health Care Education/Training Program
DX: Z96.651 Presence of right artificial knee joint (principal)
CPT/HCPCS: 73560

== ENCOUNTER → 2022-02-24 02:56 | Outpatient (CLI) | payer OTHER, SELFPAY ==
--- NOTE | 2022-02-24 08:00 | DI.RAD_ITS ---
Exam(s) RF JOINT INJECTION FLUORO GUID EXAM: RF JOINT INJECTION FLUORO GUID CLINICAL HISTORY: R SHOULDER INJ UNDER FLUORO,rt rtc,arthritis rt glenohumeral jt,m75.101, TECHNIQUE: 2D and realtime digital imaging was performed. CONTRAST MATERIAL: Water soluble contrast was administered. COMPARISON: No exams were available for comparison FINDINGS: Fluoroscopy was provided for Dr. Davila during the performance of a right shoulder injection. Ple ase refer to the procedure report for complete details. IMPRESSION: RADIATION DOSE DELIVERED: mary Ramon=1.98 mGy
--- NOTE | 2022-02-24 13:19 | W.PROCNOTE ---
Date of service: 02/24/22 Time of Service: 13:19 Procedure Note Procedure: Right Shoulder Injection Surgeon/Proceduralist/Physician: Anish Davila Procedure Diagnosis: Right Glenohumeral Arthritis Procedure Indications: Michael has had persistent pain of the RIGHT shoulder. Noninvasive measures have been tried. To serve as both diagnostic and therapeutic, an injection under fluoroscopy was recommended. I had discussed the risks of the procedure and the patient elected to proceed. Procedure Description: Michael was greeted in the flouroscopy room. The correct side was identified and the consent was reviewed with the patient and signed. The patient was then placed in the supine position on the fluoroscopy table. The RIGHT shoulder was then prepped with Chloraprep. The anterior injection starting point was identiifed by bony landmarks and fluoroscopy. The skin and soft tissue in the tract of the injection was anesthetized with 1% Lidocaine. A spinal needle was then inserted deep into the shoulder joint at the level of the recess between the glenoid and superior humeral head. A small amount of Omnipaque solution was injected to confirm intraarticular placement. Once confirmed, the shoulder was injected with 5cc of 0.5% Bupivicaine and 80mg of Depo-Medrol. A bandaid was placed on the injection site. The patient tolerated the procedure well and noted improvement in pre-injection pain.
[2022-02-24] MEDS: Omnipaque 300 MG/ML 10 ML BTL IJ (13:52)
[2022-02-24] MEDS: methylPREDNISolone ACETATE 80 MG/ML VIAL IM (13:53)
[2022-02-24] MEDS: Bupivacaine 0.5% Pres-Free 10 ML VIAL IJ (13:53)
== END ==
PROVIDERS: PCP Family Medicine; Visit Provider Student in an Organized Health Care Education/Training Program
DX: M19.011 Primary osteoarthritis, right shoulder (principal); M75.101 Unspecified rotator cuff tear or rupture of right shoulder, not specified as traumatic
CPT/HCPCS: 20610; 77002; J1040

== ENCOUNTER 2023-02-17 09:25 | Outpatient (CLI) | payer OTHER, SELFPAY ==
--- NOTE | 2023-02-17 09:00 | DI.RAD_ITS ---
Exam(s) XR KNEE RT 2V AP,LAT EXAM: XR KNEE RT 2V AP,LAT CLINICAL HISTORY: annual f/u S/P R TKA. TECHNIQUE: 2D digital imaging was performed of the right knee. Two views obtained. AP and lateral views were obtained. COMPARISON: CR XR KNEE RT 2V AP,LAT from 02/17/2022 FINDINGS: BONES: No acute fracture is present. No bony destructive lesion is seen. JOINTS: There are stable postsurgical changes of a right total knee replacement. The orthopedic hard martínez appears in good position without evidence of failure. There is a small joint effusion. SOFT TISSUE: Normal. IMPRESSION: Stable right total knee replacement. DATA REPOSITORY: RADIATION DOSE DELIVERED:
== END 2023-02-17 09:26 | disposition home or self-care (01) ==
LOC: DIORS 09:25
PROVIDERS: PCP Family Medicine; Visit Provider Student in an Organized Health Care Education/Training Program
DX: Z96.651 Presence of right artificial knee joint (principal); Z47.1 Aftercare following joint replacement surgery
CPT/HCPCS: 73560

== ENCOUNTER 2023-11-08 14:52 | Outpatient (CLI) | payer OTHER, SELFPAY ==
--- NOTE | 2023-11-08 13:00 | DI.RAD_ITS ---
Exam(s) XR SHOULDER RT COMPLETE 2+V EXAM: XR SHOULDER RT COMPLETE 2+V CLINICAL HISTORY: RIGHT SHOULDER PAIN. TECHNIQUE: 2D digital imaging was performed. COMPARISON: CR XR SHOULDER RT COMPLETE 2+V from 12/21/2020 FINDINGS: Two views. No evidence of fracture or dislocation. However, there is now significant glenohumeral joint space n arrowing and a large cavazos-type osteophyte on the inferior articular surface of the humeral head now evident. There are no calcifications in the subacromial space. No osseous lesions. IMPRESSION: Significant progression of degenerative change in the glenohumeral joint when compared to prior image s of November 2020. DATA REPOSITORY: RADIATION DOSE DELIVERED:
== END 2023-11-08 14:53 | disposition home or self-care (01) ==
LOC: DIORS 14:52
PROVIDERS: PCP Family Medicine; Visit Provider Student in an Organized Health Care Education/Training Program
DX: M19.011 Primary osteoarthritis, right shoulder
CPT/HCPCS: 73030

== ENCOUNTER → 2023-12-05 01:17 | Outpatient (CLI) | payer OTHER, SELFPAY ==
--- NOTE | 2023-12-05 08:45 | DI.MRI_ITS ---
Exam(s) MR UPPER JOINT RT WO EXAM: MR UPPER JOINT RT WO CLINICAL HISTORY: R SHOULDER PAIN,RT ROTATOR CUFF TEAR, ARTHRITIS RT GLENOHUMERAL JOINT. TECHNIQUE: Multiplanar multisequence MRI was performed. COMPARISON: Plain films 08 November 2023 FINDINGS: BONES: There is no fracture or contusion pattern. Degenerative signal changes in the glenoid. Dege nerative cysts in the humeral head. JOINTS:The acromioclavicular joint shows mild inferior spurring. The glenohumeral joint shows advan anisa degenerative changes. There is severe cartilage thinning extending down to bone. There is subch ondral cyst in the glenoid. There is a prominent osteophyte at the inferior margin of the humeral he ad. Small joint effusion. TENDONS: Supraspinatus: Multifocal areas of high signal distally near the attachment could indicate small part ial tears. Infraspinatus: Unremarkable. Subscapularis: Unremarkable. Teres Minor: Unremarkable. Biceps and [place]: Fluid surrounding biceps tendon. Intermediate signal seen superiorly could indica te tendinosis. MUSCLES: Unremarkable. GLENOID LABRUM: Degenerative changes. SOFT TISSUES: Unremarkable. OTHER: Subacromial and subdeltoid bursae . Fluid in subcoracoid bursa.. IMPRESSION: Severe degenerative changes of the glenohumeral joint. Tendinosis of the superior long head of the biceps tendon. Small areas of partial tearing of the supraspinatus tendon. DATA REPOSITORY:
== END ==
PROVIDERS: PCP Family Medicine; Visit Provider Student in an Organized Health Care Education/Training Program
DX: M75.101 Unspecified rotator cuff tear or rupture of right shoulder, not specified as traumatic (principal); M19.011 Primary osteoarthritis, right shoulder
CPT/HCPCS: 73221

== ENCOUNTER 2023-12-21 05:55 | Day surgery (SDC) | payer OTHER, SELFPAY ==
[2023-12-21] VITALS (26 sets, daily range): BP systolic 108–172; BP diastolic 62–93; PULSE 59–80; RESP 11–33; TEMP 36.4–37; O2SAT 94–99; BMI 30.7
--- NOTE | 2023-12-21 06:08 | ANES.PREOP_ITS ---
General Info Date of Service Date Performed: 12/21/23 Height: 6 ft 2 in Weight: 108.409 kg Body Mass Index (BMI): 30.7 Surgical Procedure: Operation Date: 12/21/23 07:40 Proposed Procedure Side Surgeon p Shoulder Reverse Total Arthroplasty, Biceps Tenodesis Right Marcos Tilley MD Meds Allergies and Home Medications Allergies Allergy/AdvReac Type Severity Reaction Status Date / Time No Known Allergies Allergy Verified 12/21/23 06:09 Home Medication ?Medication ?Instructions ?Recorded THC gummies PO 12/21/20 ohzckaoy-xv-hvgvd 300 mcg-K 60 1 tab PO DAILY 02/15/21 mcg-lycop 600 mcg-lutein 300 mcg tablet (Centrum Silver Men) lisinopril 20 1 tab PO DAILY 11/08/23 mg-hydrochlorothiazide 12.5 mg tablet pantoprazole 20 mg tablet,delayed 20 mg PO DAILY 11/08/23 release pramipexole 1 mg tablet 1 mg PO DAILY 11/08/23 rosuvastatin 40 mg tablet 40 mg PO DAILY 11/08/23 tamsulosin 0.4 mg capsule 0.4 mg PO DAILY 11/08/23 celecoxib 200 mg capsule (Celebrex) 200 mg PO BID 12/13/23 Current Visit Medications: Current Medications Generic Name Dose Route Start Last Admin Trade Name Freq PRN Reason Stop Dose Admin Ringer's Solution 1,000 mls @ 30 mls/hr 12/21/23 06:00 IV 12/21/23 23:59 INFUSION MARYELLEN Cefazolin Sodium 3,000 mg/ 100 mls @ 200 mls/hr 12/21/23 06:00 Sodium Chloride IVPB 12/21/23 23:59 PREOP MARYELLEN Tranexamic Acid/Sodium Chloride 1,000 mg in 100 mls @ 600 mls/hr 12/21/23 06:00 IVPB 12/21/23 23:59 PREOP MARYELLEN IV Miscellaneous Supplies 1 each 12/21/23 06:00 Iv Access IV 12/21/23 23:59 DIRECTED MARYELLEN Sodium Chloride 0 ml 12/21/23 06:00 Normal Saline Flush 10 Ml Syr IV 12/21/23 23:59 PRN PRN Sodium Chloride 0 ml 12/21/23 06:00 Normal Saline 10 Ml Vial IJ 12/21/23 23:59 DIRECTED PRN Sterile Water 0 ml 12/21/23 06:00 Water,Injection,Sterile 10 Ml Vial IJ 12/21/23 23:59 DIRECTED PRN PFSH Active Problems Active Problems: Problem Status Onset Code History of total right knee replacement Acute 02/16/21 Z96.651 Right rotator cuff tear Acute M75.101 Arthritis of right glenohumeral joint Acute M19.011 Medical History Medical History Acid reflux HTN (hypertension) Hyperlipemia RLS (restless legs syndrome) Surgical History Surgical History History of hand surgery History of arthroscopy of right knee History of arthroscopy of left knee Status post labral repair of shoulder Right ~10-15 years ago [facility] Tobacco Smoking/Tobacco Use Status: Never Second hand exposure: No Alcohol Alcohol Intake: former Substance Use Substance use: Daily Substance use type: marijuana Vital Signs and Lab Results Vital Signs Most Recent Vital Signs in EMR: Temp Pulse Resp BP Pulse Ox 37.0 C 80 16 172/93 H 97 12/21/23 06:42 12/21/23 06:42 12/21/23 06:42 12/21/23 06:42 12/21/23 06:42 Lab Results Blood Type / Crossmatch: No Data to Display Complete Blood Count: No Data to Display Complete Metabolic Panel: No Data to Display Liver Function Panel: No Data to Display Coagulation Panel: No Data to Display Cardiac Panel: No Data to Display Arterial Blood Gas: No Data to Display Venous Blood Gas: No Data to Display Pancreas Panel: No Data to Display Thyroid Panel: No Data to Display Infectious Disease: No Data to Display Blood Cultures: No Data to Display Toxicology Panel: No Data to Display Anesthesia Assessment and Plan Anesthesia History Personal History: No History of Anesthesia Complications Family History: No Family History of Anesthesia Complications Exercise Tolerance Exercise Tolerance: Metabolic Equivalents>4 Cardiac & Pulmonary Exam Cardiac Exam: Normal S1/S2 Heart Sounds Pulmonary Exam: Clear Bilateral Breath Sounds Implantable Cardiac Device Does patient have a Pacemaker or an ICD?: No Airway Exam Known Difficult Airway: No Mallampati Class: 2 Mouth Opening: Normal (> 3cm) Thyromental Distance: Greater than 3 cm Neck Range of Motion: Limited ROM Neck Circumference: Normal Teeth Condition: Normal Dentition ASA Classification ASA Score: ASA 2 Emergency Case?: No NPO Status NPO Status: NPO Clears >2 hours, Solids >8 hours Anesthesia Plan Resuscitation Status: Full Code Anesthesia Technique: General Anesthesia Airway Planned: Endotracheal Tube Pain Management: Surgeon and patient request nerve block Monitors Used: Standard Monitors Preoperative Comments:: 55 yo male for TKA. PMHx: HTN (lisinopril-HCTZ), GERD (pantoprazole. feels good today, doesn't use daily). Denies major cardiac, pulmonary, renal, liver, issues. Previous Anes: - TKA, spinal, prop, dexmed (56 mcg), natural airway, no issues.
[2023-12-21] MEDS: Lactated Ringers 1,000 ML 30 ML IV (06:45)
--- NOTE | 2023-12-21 07:06 | W.PM.DSUDISC ---
Date of service: 12/21/23 Time of Service: 14:00 Discharge Plan Disposition Patient Disposition: Home Condition: Stable Discharge Details Attending Provider: Marcos Tilley Primary Care Provider: Jamar Frias Home Meds and New Rx's Prescriptions: New tramadol 50 mg tablet 50 mg PO Q8H PRN (Reason: severe pain) Qty: 9 0RF Continued tamsulosin 0.4 mg capsule 0.4 mg PO DAILY rosuvastatin 40 mg tablet 40 mg PO DAILY pramipexole 1 mg tablet 1 mg PO DAILY lisinopril-hydrochlorothiazide 20-12.5 mg tablet 1 tab PO DAILY pantoprazole 20 mg tablet,delayed release (DR/EC) 20 mg PO DAILY celecoxib [Celebrex] 200 mg capsule 200 mg PO BID THC gummies PO Centrum Silver Men 300-600-300 mcg Tablet 1 tab PO DAILY Discharge Instructions Additional Instructions: Surgery: Right reverse total shoulder arthroplasty (rotator cuff preserved, subscapularis repair) with biceps tenodesis Activity: Do not lift anything heavier than a coffee. You should keep your arm at your side in a relatively neutral position at all times except for gentle range of motion exercises, physical therapy, and essential activities. You should use the sling whenever you are out of the house. At home it is best to remove the sling and rest the arm on a pillow at your side or support the operative side with your other hand. A physical therapy prescription will be sent electronically to start in about 3 weeks. CONSERVATIVE reverse TSA Protocol. Prescriptions: Resume Celebrex for moderate swelling and pain Tramadol 50 mg take 1 every 6-8 hours as needed for severe pain You may use mygk-xzq-naivrsl Tylenol (acetaminophen) as needed for mild pain. These pain medications may be taken all at once or in different combinations as needed. Also, recommend Colace (docusate) as a stool softener as surgery and pain medicine cause constipation. You may try svoz-nky-[id number] diphenhydramine (Benadryl) 25-50 mg nightly as a sleep aid Dressings: Leave dressing in place until follow-up. Keep clean and dry at all times. No showers please. Follow-up: 10-[address] Tilley You may take off the leg compression stockings this evening at home. You may also leave them on a few days longer if you have a history of leg swelling or edema. Please call the office during business hours with any questions or concerns. Let us know right away if you develop any redness, drainage, fevers, chest pain, or trouble breathing. Do not drink alcohol or drive for at least 24 hours after anesthesia. Stand Alone Forms: Anesthesia Discharge Inst., Jane.Nerve Block Instructions, Flor Spencer (DSU) Discharge Orders Discharge Orders: Discharge Order (Routine); Ordered 12/21/23 Ordered By: Mik Cintron DS: Diagnosis Discharge Diagnosis (1) Arthritis of right glenohumeral joint: Status: Acute
--- NOTE | 2023-12-21 07:19 | W.PM.OP ---
Date of service: 12/21/23 Time of Service: 07:30 Operative Note Operative Note DATE OF PROCEDURE: 12/21/23 PRE-OP DIAGNOSIS: Right: 1. End-stage glenohumeral arthritis 2. Long head of the biceps tendinopathy 3. Partial rotator cuff tearing POST-OP DIAGNOSIS: same PROCEDURE: Right: 1. Reverse total shoulder arthroplasty, CPT # 37666 2. Open biceps tenodesis, CPT # 07912 The assistant passenger locomotive engineer was medically required as this procedure involves retraction, protection of neurovascular structures, and manipulation of multiple instruments and implants at the same time, which cannot be done without a skilled assistant passenger locomotive engineer. SURGEON: Marcos Tilley SECURITY SYSTEMS ADMINISTRATOR: Mik Cintron ANESTHESIA TYPE: Local By Surgeon, General LMA/ETT and Primary Nerve Block Refer to Anesthesia Record ESTIMATED BLOOD LOSS: 150 PATHOLOGY: none sent COMPLICATIONS: None Patient was transported to: PACU Patient's condition: stable Implants: [employer] modular glenoid system baseplate 24 mm +2mm Lateralized [employer] modular glenoid system central post 20 mm [employer] modular glenoid system peripheral locking screws 36 mm inferior, 28 mm superior, 20 mm posterior, 20 mm anterior [employer] modular glenoid system glenosphere 42 +4 mm lateralized [employer] humeral stem 135 degrees size 9 [employer] suture cup size 42 posterior offset [employer] humeral insert size 42 +6 mm Indications: Please see complete medical record for details. Findings: Significant long head biceps tenosynovitis, anterior capsular contracture, moderate thinning partial tearing tearing subscapularis over large inferior humeral head osteophytes, relatively preserved superior rotator cuff, and significant glenohumeral cartilage loss and deformity. Procedure Description: In the operating room, general anesthesia was induced. The patient was positioned beachchair on the operating room table. All bony prominences were well-padded. Preoperative antibiotics were administered. The shoulder was prepped and draped in the usual sterile fashion for shoulder arthroplasty. The correct patient, procedure, and side of the procedure were all verified prior to incision. The deltopectoral approach was preinjected with 0.25% bupivacaine containing epinephrine and taken to the anterior shoulder. Care was taken to bluntly dissect the interval between the deltoid and pectoralis major muscles and to identify the cephalic vein, which was somewhat diminutive, within its fat stripe. The the vein was mobilized laterally. Subdeltoid space and conjoined tendon were freed of adhesions. The long head of the biceps tendon was identified just lateral to the lesser tuberosity. The uppermost margin of the pectoralis major tendon was released from the proximal humerus. The long head of the biceps tendon was tenodesed in situ using SutureTape in a ahzati-cl-lztct fashion securing it superior margin the pectoralis major tendon. The biceps tendon was amputated and followed proximally to identify the rotator interval. A subscapularis peel was performed taking care to release the entire tendon in a full-thickness fashion from superior to inferior and lateral to medial while bringing the arm gradually into external rotation. Care was taken to avoid the axillary nerve by only working on the bone inferiorly and medially. The subscapularis was tagged using SutureTape in a Gera-Meir fashion and traction used confirm appropriate mobilization of the subscapularis tendon after gentle blunt dissection was used to free up the space anterior and posterior to it. The leading edge supraspinatus was identified and superior and posterior superior rotator cuff preserved. Appropriate coagulation was achieved especially interiorly. The anatomic neck was cut using an oscillating saw with the humeral head bone brought back table in case there was a need for future bone grafting. Large inferior goats cavazos osteophytes were removed down the humeral neck. The proximal humerus was delivered from the wound with adduction and external rotation. The proximal humeral protection plate was used to provisionally confirm suture cup and glenosphere size. Reamers were started appropriately posterior to the bicipital groove taking care to maintain in line approach with the humeral canal. Sequential reaming was done from size 5 up to size 8. Next, the broaches were sequentially used to open the proximal humerus starting with a size 5 and going up to size 9 and sunk to the appropriate depth while maintaining approximately 30 degrees retroversion. There was good metaphyseal fit and rotational control of the proximal humerus with this size. The posterior offset guide was used to ream for the suture cup. Attention was then turned to the glenoid and retractors were placed and a circumferential release performed using the long head of the biceps remnant to remove soft tissue about the glenoid rim. Care was taken inferiorly to work on bone only between 5 and 7:00 o'clock and bluntly elevate tissues inferiorly. The VIP guide was placed on the glenoid and used to confirm placement and trajectory of the central guidepin. The guidepin was inserted and advanced just through the far cortex ensuring adequate central fixation length. The glenoid was prepared according to ship pilot specifications for a standard baseplate and central post. The baseplate was impacted onto the glenoid surface. The locking guide was then used to drill and place appropriately lengthed inferior, superior, anterior, and posterior screws. The [id number] reamer was used to confirm adequate peripheral reaming. The glenosphere was applied with the camp assistant and then impacted to engage the Mao taper. It was then locked with appropriate countersinking of the setscrew. The glenosphere was inspected and found to have good fit, appropriate positioning, and no soft tissue or bony impingement. Attention was then turned back to the proximal humerus. The humeral trial cup was connected. Trialing was commenced with +3 mm liner. The shoulder was reduced and taken through range of motion. Trial components were built up to +6 mm liner to achieve good stability and appropriate tension on the deltoid and conjoined tension. The trial components were removed from the proximal humerus. The wound was copiously irrigated with normal saline. A 2 mm drill was used to drill 2 drill holes in the bicipital groove for later subscapularis repair. The the proximal humeral stem and suture cup were assembled and brought over the proximal humerus. Suture tapes were placed superiorly inferiorly at the medial and lateral aspect of the suture cup. The lateral tapes were brought out the drill holes. A small amount of vancomycin powder was distributed in the proximal humerus. The humeral component and suture cup were impacted into place sitting in the same location as the trials. The final liner was then connected, and range of motion, stability, and tension confirmed to be excellent and appropriate for reverse with cuff preservation. The shoulder was copiously irrigated with Betadine and normal saline. Vancomycin powder was distributed deeply about the shoulder and through subcutaneous tissues. The arm was placed in about 30 degrees of external rotation. The subscapularis was reduced and repaired using the pairs of SutureTape in a speed bridge type configuration. The arm was taken into more external rotation without any displacement of the subscapularis repair. The deltopectoral interval was approximated burying the vein with 2-0 Monocryl. Subcutaneous tissue was irrigated then closed using 2-0 Monocryl in a buried interrupted fashion. Skin was closed using 3-0 Monocryl in a buried subcuticular fashion. Skin glue was applied to the incision. A silver impregnated bandage was placed over the incision. The extremity was placed into a shoulder immobilizer. The patient awoke from anesthesia without complication and was taken to the recovery room in stable condition.
[2023-12-21] MEDS: ceFAZolin 3,000 MG in Normal Saline 100 ML 200 MG IVPB (07:40)
[2023-12-21] MEDS: TRANEXAMIC ACID/SOD. CHL. 1,000 MG/100 ML BAG 600 MG IVPB (07:47)
--- NOTE | 2023-12-21 07:50 | W.ANESNERVE ---
Nerve Block Single Injection Procedure Date and Time Date Performed: 12/21/23 Procedure Start: 07:12 Location Where Procedure Performed Procedure Location: Day Surgery Unit Reason Performed: Postoperative Analgesia Requesting Provider: Marcos Tilley Timeout Performed Timeout Performed: Yes Monitoring Used ECG, Blood Pressure and SpO2 Sterility Sterility: Hand Hygiene, Surgical Cap, Surgical Mask, Sterile Gloves and Chlorhexidine Sedation Given During Procedure Sedation Given (Indicate Dose Given): Propofol IV Dose:: 30 mg Patient Mental Status Patient Mental Status: Sedate with meaningful communication Nerve Block 1st Nerve Block: Laterality: Right Block Type: Interscalene Ultrasound Image Saved?: Yes Needle / Catheter Used: 100mm SonoPlex II Local Anesthetic Bolus (Indicate Dose Given): Lidocaine used for local infiltration of skin, Bupivacaine 0.5% Dose:: 10 mL and Exparel Dose:: 10 mL Additives (Indicate Dose Given): None Ultrasound: Sterile probe cover and gel used Nerve Stimulator: Supplement to Ultrasound use and No twitch or parasthesia noted < 0.5 mA Paresthesia: None Procedure Tolerated: No Complications Procedure Outcome: Successful Performed By: Bartolome Carlos
[2023-12-21] MEDS: Bupivacaine 0.25% Pres-Free W/EPI 30 ML VIAL (08:20)
--- NOTE | 2023-12-21 12:20 | DI.RAD_ITS ---
Exam(s) XR SHOULDER RT COMPLETE 2+V EXAM: XR SHOULDER RT COMPLETE 2+V CLINICAL HISTORY: Shoulder Arthritis. TECHNIQUE: 2D digital imaging was performed of the right shoulder. Four images were obtained. Gras hey and Y views were obtained. COMPARISON: CR XR SHOULDER RT COMPLETE 2+V from 11/08/[address] UPPER EXTREMITY RT WO from 12/06/2023 FINDINGS: The patient is now status post right total reverse shoulder replacement. The orthopedic hardware vicky ears in good position. Postsurgical changes are seen in the soft tissues. IMPRESSION: Status post right total reverse shoulder replacement. DATA REPOSITORY: RADIATION DOSE DELIVERED:
--- NOTE | 2023-12-21 12:27 | W.ANESPOSTOP ---
Postoperative Evaluation Date, Time and Location Date Performed: 12/21/23 Time Performed: 12:27 Patient Location: PACU Vital Signs Most Recent Imported Vital Signs: Most Recent Vital Signs Temp Pulse Resp BP Pulse Ox 36.6 C 68 17 118/69 99 12/21/23 11:48 12/21/23 12:01 12/21/23 12:15 12/21/23 12:01 12/21/23 12:15 Pain Score Most Recent Pain Score: Most Recent Pain Score Pain Level 0 12/21/23 11:48 Assessment Mental Status: Awake (Alert & Oriented to Patient Baseline) Airway and Respiratory Function: Patent airway with normal (patient baseline) respiratory exam Cardiovascular Function: Hemodynamically Stable Hydration Status: Adequately Hydrated Nausea & Vomiting: No Nausea or Vomiting Pain: Pain is tolerable per patient (slight twing under is arm in pit area. ) Peripheral Nerve Block: Regional nerve block not resolved at time of post operative discharge
[2023-12-21] MEDS: ceFAZolin 1 GM/50 ML BAG IVPB (12:40)
[2023-12-21] MEDS: Lactobacillus Acidophilus CAP 1 CAP PO (13:12)
== END 2023-12-21 14:54 | disposition home or self-care (01) ==
PROVIDERS: PCP Family Medicine; Visit Provider Student in an Organized Health Care Education/Training Program
PROC: (CPT 23472; principal; 2023-12-21 07:30)
DX: M19.011 Primary osteoarthritis, right shoulder (principal); I10 Essential (primary) hypertension; M75.101 Unspecified rotator cuff tear or rupture of right shoulder, not specified as traumatic; M75.21 Bicipital tendinitis, right shoulder
CPT/HCPCS: 23472; 23430; 76942; 73030; C9290; J0131; J0665; J0690; J1100; J1885; J2405; J2704; J3370

== ENCOUNTER 2024-01-02 15:42 | Outpatient (CLI) | payer OTHER, SELFPAY ==
--- NOTE | 2024-01-02 13:00 | DI.RAD_ITS ---
Exam(s) XR SHOULDER RT COMPLETE 2+V EXAM: XR SHOULDER RT COMPLETE 2+V CLINICAL HISTORY: S/P RIGHT RTSA. TECHNIQUE: 2D digital imaging was performed. Five views. COMPARISON: CR XR SHOULDER RT COMPLETE 2+V from 12/21/2023 FINDINGS: BONES: No acute fracture is present. No bony destructive lesion is seen. JOINTS: No dislocation present. No change in alignment of reverse shoulder prosthesis. SOFT TISSUE: Normal. IMPRESSION: Stable appearance of reverse shoulder prosthesis. DATA REPOSITORY: RADIATION DOSE DELIVERED:
== END 2024-01-02 15:43 | disposition home or self-care (01) ==
LOC: DIORS 15:42
PROVIDERS: PCP Family Medicine; Visit Provider Student in an Organized Health Care Education/Training Program
DX: M19.011 Primary osteoarthritis, right shoulder (principal); Z96.611 Presence of right artificial shoulder joint
CPT/HCPCS: 73030

== ENCOUNTER 2025-01-20 15:42 | Outpatient (CLI) | payer OTHER, SELFPAY ==
--- NOTE | 2025-01-20 15:23 | DI.RAD_ITS ---
Exam(s) XR KNEE LT 4V AP,LAT,DENNY,PAT EXAM: XR KNEE LT 4V AP,LAT,DENNY,PAT CLINICAL HISTORY: eval L knee pain. TECHNIQUE: 2D digital imaging was performed. COMPARISON: CR XR KNEE RT 2V AP,LAT from 02/17/2023 FINDINGS: 3 views No evidence of fracture. There is small amount of increased joint fluid. Minimal if any significant degenerative changes. No osteochondral defects. No loose intra-articular bodies. No osteophytes. Bone density normal. No osseous lesions. No chondrocalcinosis. IMPRESSION: No significant radiograph findings in the left knee. DATA REPOSITORY: RADIATION DOSE DELIVERED:
== END 2025-01-20 15:43 | disposition home or self-care (01) ==
LOC: DIORS 15:42
PROVIDERS: PCP Family Medicine; Visit Provider Student in an Organized Health Care Education/Training Program
DX: M25.562 Pain in left knee (principal)
CPT/HCPCS: 73564